=== PATIENT | male | born 1975 ===

== ENCOUNTER 2021-04-09 20:29 | Inpatient (IN) | payer SELFPAY ==
[~2021-04-09] VITALS: Ht 172.7 cm; Wt 84.9 kg
[2021-04-09] MEDS ORDERED: AZITHROMYCIN 500MG/ 250ML 250 ML IV ONE (21:00)
[2021-04-09] MEDS ORDERED: methylPREDNISolone SOD SUCC 125 MG/2 ML VL IV ONE (21:00)
[2021-04-09] MEDS ORDERED: ASCORBIC ACID 500 MG TAB PO ONE (21:00)
[2021-04-09] MEDS ORDERED: ZINC SULFATE 220mg CAP or TAB PO ONE (21:00)
[2021-04-09] MEDS ORDERED: CHOLECALCIFEROL (VITD3) 2,000 UNIT CAP/TAB PO ONE (21:00)
[2021-04-09 22:07] LABS: Basophils # (auto) 0 10 ^3/uL (0-0.2); Basophils % (auto) 0.2 % (0.0-2.0); Eosinophils # (auto) 0 10 ^3/uL (0-0.8); Hematocrit 44.1 % (41.0-53.0); Hemoglobin 15.7 g/dL (13.5-17.5); Lymphocytes # (auto) 0.8 10 ^3/uL (0.4-5.4); Lymphocytes % (auto) 12.9 % (10.0-50.0); Mean Corpuscular Hemoglobin 31.9 pg (28.0-32.0); Mean Corpuscular Hgb Conc. 35.6 g/dL (32.0-36.0); Mean Corpuscular Volume 89.7 fL (80.0-100.0); Monocytes # (auto) 0.3 10 ^3/uL (0-1.3); Neutrophils % (auto) 81.9 % (37.0-80.0); Nucleated Red Blood Cells % 0.1 %; Red Blood Cells 4.91 10^6/uL (4.5-5.90); Red Cell Distribution Width 14.1 % (11.8-14.3); White Blood Cell 6.1 10^3/uL (4.4-10.8)
[2021-04-09 22:23] LABS: Calcium 8.3 mg/dL (8.5-10.1); Potassium 4.2 mmol/L (3.5-5.1)
[2021-04-09 22:26] LABS: Bilirubin, Total 0.5 mg/dL (0.2-1.0); Total Protein 8.2 g/dL (6.4-8.2)
[2021-04-10] MEDS ORDERED: ONDANSETRON HCL 4 MG/2 ML VIAL ONE (02:28)
[2021-04-10] MEDS ORDERED: ONDANSETRON HCL 4 MG/2 ML VIAL IV ONE (02:30)
[2021-04-10] MEDS ORDERED: ACETAMINOPHEN 325 MG TAB PO ONE (02:30)
[2021-04-10] MEDS ORDERED: FAMOTIDINE (10MG/ML) 2ML VL IV ONE (02:45)
[2021-04-10] MEDS ORDERED: SODIUM CHLORIDE 0.9% 1,000 ML IV ONE (02:45)
[2021-04-10] MEDS ORDERED: IOHEXOL 350 MG/ML 100ML IJ ONE (04:07)
[2021-04-10] MEDS ORDERED: CALCIUM GLUC 1,000mg/50ml-NS 50 ML IV ONE (04:15)
[2021-04-10] MEDS ORDERED: MORPHINE SULF INJ 2 MG/ML SYRINGE 1ML IV PRN (11:15)
[2021-04-10] MEDS ORDERED: NITROGLYCERIN 0.4 MG SL TAB SL PRN (11:15)
[2021-04-10] MEDS ORDERED: LACTULOSE 20Gm/30ML SOLN PO PRN (11:45)
[2021-04-10] MEDS ORDERED: REMDESIVIR PER PHARMACY 0 ML IV SCH (11:45)
[2021-04-10] MEDS ORDERED: PROMETHAZINE HCL 25 MG/ML 1ML IV PRN (11:45)
[2021-04-10] MEDS ORDERED: chlordiazePOXIDE HCL 25 MG CAP PO PRN (11:45)
[2021-04-10] MEDS ORDERED: traMADol HCL 50 MG TAB PO PRN (11:45)
[2021-04-10] MEDS ORDERED: THIAMINE 100mg/ml INJ (200mg/2ml VIAL) IV ONE (11:45)
[2021-04-10] MEDS ORDERED: ACETAMINOPHEN 500 MG TAB PO PRN (11:45)
[2021-04-10] MEDS ORDERED: TEMAZEPAM 15 MG CAP PO PRN (11:45)
[2021-04-10] MEDS ORDERED: levoFLOXacin 500MG 100 ML IV ONE (11:45)
[2021-04-10 12:23] LABS: Urine Bacteria NONE SEEN /hpf (None Seen); Urine Blood Negative /uL (Negative); Urine Specific Gravity 1.023 (1.001-1.035); Urine WBC 1 /hpf (0 - 3)
[2021-04-10 12:35] VITALS: BP 124/70
[2021-04-10] MEDS: SODIUM CHLORIDE 0.9% 1,000 ML IV SCH (15:58)
[2021-04-10] MEDS: IVERMECTIN 3 MG TAB PO SCH (15:58)
[2021-04-10] MEDS ORDERED: REMDESIVIR 200 MG in NS 210ml LOADING DOSE ADULT IV ONE (17:00)
[2021-04-10 22:00] VITALS: BP 133/84
[2021-04-10] MEDS: FAMOTIDINE 20 MG TAB PO SCH (22:08)
[2021-04-10] MEDS: FLORASTOR (S. BOULARDII) 250 MG CAP PO SCH (22:08)
[2021-04-10] MEDS: ENOXAPARIN SOD 40 MG/0.4 ML SYRINGE SC SCH (22:09)
[2021-04-10] MEDS: BUDESONIDE (INHALATION) 180 MCG IH IN SCH (22:37)
[2021-04-10] MEDS: ALBUTEROL SULF HFA 90MCG INH 200DOSE IN PRN (22:38)
[2021-04-10 22:44] VITALS: BP 133/84
[2021-04-11] MEDS: SODIUM CHLORIDE 0.9% 1,000 ML IV SCH ×2 (01:05→16:51)
[2021-04-11 05:30] VITALS: BP 109/76
[2021-04-11] MEDS: BUDESONIDE (INHALATION) 180 MCG IH IN SCH ×2 (06:25→20:12)
[2021-04-11] MEDS: ALBUTEROL SULF HFA 90MCG INH 200DOSE IN PRN (06:25)
[2021-04-11 06:53] LABS: Basophils # (auto) 0 10 ^3/uL (0-0.2); Basophils % (auto) 0.5 % (0.0-2.0); Eosinophils # (auto) 0 10 ^3/uL (0-0.8); Hematocrit 40.2 % (41.0-53.0); Hemoglobin 13.8 g/dL (13.5-17.5); Lymphocytes # (auto) 0.8 10 ^3/uL (0.4-5.4); Lymphocytes % (auto) 9.6 % (10.0-50.0); Mean Corpuscular Hemoglobin 31.1 pg (28.0-32.0); Mean Corpuscular Hgb Conc. 34.4 g/dL (32.0-36.0); Mean Corpuscular Volume 90.3 fL (80.0-100.0); Monocytes # (auto) 0.6 10 ^3/uL (0-1.3); Monocytes % (auto) 7.2 % (0.0-12.0); Neutrophils # (auto) 7.2 10 ^3/uL (1.6-8.6); Neutrophils % (auto) 82.7 % (37.0-80.0); Nucleated Red Blood Cells % 0.1 %; Red Blood Cells 4.44 10^6/uL (4.5-5.90); White Blood Cell 8.7 10^3/uL (4.4-10.8)
[2021-04-11 07:15] LABS: Calcium 8.3 mg/dL (8.5-10.1); Potassium 4.2 mmol/L (3.5-5.1)
[2021-04-11 07:22] LABS: Albumin 2.3 g/dL (3.4-5.0); BUN/Creatinine Ratio 23.1; Bilirubin, Total 0.3 mg/dL (0.2-1.0); Total Protein 6.9 g/dL (6.4-8.2)
[2021-04-11 09:00] VITALS: BP 107/55
[2021-04-11] MEDS: levoFLOXacin 500MG 100 ML IV SCH (10:52)
[2021-04-11] MEDS: ZINC SULFATE 220mg CAP or TAB PO SCH (10:52)
[2021-04-11] MEDS: DexAMETHasone SOD PHOS 10MG/1ML VIAL INJ IV SCH (10:52)
[2021-04-11] MEDS: THIAMINE 100mg/ml INJ (200mg/2ml VIAL) IV SCH (10:52)
[2021-04-11] MEDS: IVERMECTIN 3 MG TAB PO SCH (10:53)
[2021-04-11] MEDS: FAMOTIDINE 20 MG TAB PO SCH ×2 (10:53→22:07)
[2021-04-11] MEDS: ASCORBIC ACID 1,000 MG TAB PO SCH (10:53)
[2021-04-11] MEDS: FLORASTOR (S. BOULARDII) 250 MG CAP PO SCH ×2 (10:53→22:07)
[2021-04-11] MEDS: ENOXAPARIN SOD 40 MG/0.4 ML SYRINGE SC SCH ×2 (10:54→22:07)
[2021-04-11] MEDS: CHOLECALCIFEROL (VITD3) 2,000 UNIT CAP/TAB PO SCH (10:54)
[2021-04-11] MEDS ORDERED: FUROSEMIDE 20 MG/2 ML VIAL IV ONE (12:00)
[2021-04-11 13:00] VITALS: BP 114/72
[2021-04-11] MEDS: REMDESIVIR 100mg 100 MG in SODIUM CHL 0.9% 230 ML IV SCH (16:51)
[2021-04-11 17:00] VITALS: BP 117/68
[2021-04-11 18:01] VITALS: BP 111/62
[2021-04-11 22:00] VITALS: BP 129/80
[2021-04-12 05:00] VITALS: BP 131/52
[2021-04-12] MEDS: BUDESONIDE (INHALATION) 180 MCG IH IN SCH (05:58)
[2021-04-12] MEDS: ALBUTEROL SULF HFA 90MCG INH 200DOSE IN PRN (05:58)
[2021-04-12 08:00] VITALS: BP 117/78
[2021-04-12] MEDS: THIAMINE 100mg/ml INJ (200mg/2ml VIAL) IV SCH (09:14)
[2021-04-12] MEDS: DexAMETHasone SOD PHOS 10MG/1ML VIAL INJ IV SCH (09:14)
[2021-04-12] MEDS: SODIUM CHLORIDE 0.9% 1,000 ML IV SCH (09:14)
[2021-04-12] MEDS: CHOLECALCIFEROL (VITD3) 2,000 UNIT CAP/TAB PO SCH (09:15)
[2021-04-12] MEDS: ZINC SULFATE 220mg CAP or TAB PO SCH (09:15)
[2021-04-12] MEDS: ASCORBIC ACID 1,000 MG TAB PO SCH (09:15)
[2021-04-12] MEDS: levoFLOXacin 500MG 100 ML IV SCH (09:15)
[2021-04-12] MEDS: FAMOTIDINE 20 MG TAB PO SCH ×2 (09:15→22:01)
[2021-04-12] MEDS: ENOXAPARIN SOD 40 MG/0.4 ML SYRINGE SC SCH ×2 (09:16→22:02)
[2021-04-12] MEDS: FLORASTOR (S. BOULARDII) 250 MG CAP PO SCH ×2 (11:34→22:01)
[2021-04-12] MEDS: IVERMECTIN 3 MG TAB PO SCH (11:34)
[2021-04-12 12:00] VITALS: BP 120/75
[2021-04-12] MEDS: REMDESIVIR 100mg 100 MG in SODIUM CHL 0.9% 230 ML IV SCH (14:44)
[2021-04-12 16:00] VITALS: BP 123/91
[2021-04-12 22:00] VITALS: BP 123/80
[2021-04-13] MEDS: ALBUTEROL SULF HFA 90MCG INH 200DOSE IN PRN ×2 (00:48→07:00)
[2021-04-13] MEDS: BUDESONIDE (INHALATION) 180 MCG IH IN SCH ×2 (00:48→07:00)
[2021-04-13 05:00] VITALS: BP 103/72
[2021-04-13 07:25] LABS: Albumin 2.6 g/dL (3.4-5.0); Calcium 8.6 mg/dL (8.5-10.1); Potassium 4.1 mmol/L (3.5-5.1)
[2021-04-13 07:34] LABS: BUN/Creatinine Ratio 28.6; Bilirubin, Total 0.4 mg/dL (0.2-1.0); Total Protein 7.2 g/dL (6.4-8.2)
[2021-04-13 08:00] VITALS: BP 112/71
[2021-04-13] MEDS ORDERED: levoFLOXacin 500 MG TAB PO SCH (10:00)
[2021-04-13] MEDS: DexAMETHasone SOD PHOS 10MG/1ML VIAL INJ IV SCH (10:51)
[2021-04-13] MEDS: THIAMINE 100mg/ml INJ (200mg/2ml VIAL) IV SCH (10:51)
[2021-04-13] MEDS: CHOLECALCIFEROL (VITD3) 2,000 UNIT CAP/TAB PO SCH (10:52)
[2021-04-13] MEDS: IVERMECTIN 3 MG TAB PO SCH (10:52)
[2021-04-13] MEDS: ZINC SULFATE 220mg CAP or TAB PO SCH (10:52)
[2021-04-13] MEDS: FAMOTIDINE 20 MG TAB PO SCH (10:52)
[2021-04-13] MEDS: ASCORBIC ACID 1,000 MG TAB PO SCH (10:52)
[2021-04-13] MEDS: FLORASTOR (S. BOULARDII) 250 MG CAP PO SCH (10:53)
[2021-04-13] MEDS: ENOXAPARIN SOD 40 MG/0.4 ML SYRINGE SC SCH (10:53)
[2021-04-13 12:00] VITALS: BP 106/58
[2021-04-13 13:39] VITALS: BP 106/58
[2021-04-13 14:30] VITALS: BP 106/58
[2021-04-13] MEDS: REMDESIVIR 100mg 100 MG in SODIUM CHL 0.9% 230 ML IV SCH (15:45)
[2021-04-13 16:00] VITALS: BP 119/77
== END 2021-04-13 18:30 | disposition home or self-care (01) | DRG 177 ==
LOC: ER 20:29 → TELE 04-10 11:06 → TELE-EAST 04-10 19:43
PROVIDERS: ADMIT Internal Medicine; ATTEND Internal Medicine
PROC: XW033E5 Introduction of Remdesivir Anti-infective into Peripheral Vein, Percutaneous Approach, New Technology Group 5 (ICD-10-PCS; principal; 2021-04-10)
DX: U07.1 COVID-19 (principal); J12.82 Pneumonia due to coronavirus disease 2019; J96.01 Acute respiratory failure with hypoxia; E87.1 Hypo-osmolality and hyponatremia; R79.89 Other specified abnormal findings of blood chemistry; E66.3 Overweight; Z68.28 Body mass index [BMI] 28.0-28.9, adult
CPT/HCPCS: 36415; 36600; 71045; 71275; 80053; 81001; 82728; 82805; 83605; 85025; 85379; 86141; 87040; 87426; 93970; 94640; 96365; 96375; G0378; J1100; J1956; J2405; J3490